=== PATIENT | female | born 1985 | race Two or more races ===

== ENCOUNTER 2017-11-09 15:00 | Inpatient (IN) | payer OTHER ==
[~2017-11-09] VITALS: Ht 170.2 cm; Wt 75.7 kg
[2017-11-30] MEDS ORDERED: PRENATAL TABLE1 EAC1 PO (07:31)
== END 2017-12-02 11:41 | DRG 775 ==
LOC: LDR 11-27 15:00 → OB/GYN 11-30 00:59
PROC: 0KQM0ZZ Repair Perineum Muscle, Open Approach (ICD-10-PCS; principal; 2017-11-30)
PROC: 10E0XZZ Delivery of Products of Conception, External Approach (ICD-10-PCS; 2017-11-30)
PROC: 4A1HXCZ Monitoring of Products of Conception, Cardiac Rate, External Approach (ICD-10-PCS; 2017-11-30)
PROC: 4A033R1 Measurement of Arterial Saturation, Peripheral, Percutaneous Approach (ICD-10-PCS; 2017-11-30)
DX: O70.1 Second degree perineal laceration during delivery (principal); Z37.0 Single live birth; O48.0 Post-term pregnancy; Z3A.40 40 weeks gestation of pregnancy

== ENCOUNTER 2018-01-11 10:23 | Outpatient (CLI) | payer OTHER ==
[~2018-01-11 10:23] MED LIST: PRENATAL TABLE1 EAC1 PO
== END 2018-01-11 10:25 | disposition home or self-care (01) ==
LOC: SONOGRAMA 10:23
DX: E04.1 Nontoxic single thyroid nodule (principal)

== ENCOUNTER 2022-03-24 15:50 | Outpatient (CLI) | payer OTHER | END 2022-03-24 16:55 | disposition home or self-care (01) | LOC: PRENATAL 15:50 | PROVIDERS: ATTEND Obstetrics & Gynecology Maternal & Fetal Medicine | DX: Z34.00 Encounter for supervision of normal first pregnancy, unspecified trimester (principal) ==

== ENCOUNTER 2022-04-08 09:21 | Outpatient (CLI) | payer OTHER | END 2022-04-08 10:30 | disposition home or self-care (01) | LOC: PRENATAL 09:21 | PROVIDERS: ATTEND Obstetrics & Gynecology Maternal & Fetal Medicine | DX: O36.80X0 Pregnancy with inconclusive fetal viability, not applicable or unspecified (principal); O09.529 Supervision of elderly multigravida, unspecified trimester; O34.10 Maternal care for benign tumor of corpus uteri, unspecified trimester; Z3A.14 14 weeks gestation of pregnancy ==

== ENCOUNTER 2022-09-28 05:58 | Inpatient (IN) | payer OTHER ==
[~2022-09-28] VITALS: Ht 170.2 cm; Wt 77.1 kg
== END 2022-09-30 11:11 | disposition home or self-care (01) | DRG 807 ==
LOC: LDR 05:58 → OB/GYN 14:51
PROVIDERS: ADMIT Obstetrics & Gynecology; ATTEND Obstetrics & Gynecology
PROC: 10E0XZZ Delivery of Products of Conception, External Approach (ICD-10-PCS; principal; 2022-09-28)
PROC: 0KQM0ZZ Repair Perineum Muscle, Open Approach (ICD-10-PCS; 2022-09-28)
PROC: 4A1HXCZ Monitoring of Products of Conception, Cardiac Rate, External Approach (ICD-10-PCS; 2022-09-28)
DX: O70.1 Second degree perineal laceration during delivery (principal); Z37.0 Single live birth; Z3A.38 38 weeks gestation of pregnancy; Z20.822 Contact with and (suspected) exposure to COVID-19

== ENCOUNTER 2023-09-16 16:06 | Outpatient (CLI) | payer OTHER | END 2023-09-16 16:10 | disposition home or self-care (01) | LOC: SONOGRAMA 16:06 | PROVIDERS: ATTEND Pathology Anatomic Pathology & Clinical Pathology | DX: D44.0 Neoplasm of uncertain behavior of thyroid gland (principal); E04.2 Nontoxic multinodular goiter ==